=== PATIENT | female | born 1940 | race Caucasian/White ===

== ENCOUNTER 2023-12-13 15:15 | Emergency (ER) | payer MEDICARE, SELFPAY ==
--- NOTE | ~2023-12-13 | XR_ITS ---
EXAM: XR humerus RT, XR elbow RT 2V DATE: 12/13/2023 15:45 HISTORY: pain, MOVING HEAVY CHAIR 3 DAYS AGO HEARD POP . COMPARISON: None available. FINDINGS: Decreased mineralization. No fracture or dislocation. No lytic or blastic lesion. Mild deg enerative changes in the shoulder and elbow. Acromial and bilateral epicondylar enthesopathy. No eros ion or periosteal change. Soft tissues within normal limits. IMPRESSION: No acute osseous finding in the right humerus or right elbow. Reviewed, dictated and finalized at location K. R MACHINE OPERATOR IMPRESSION: No acute osseous finding in the right humerus or right elbow.
[2023-12-13 15:26] VITALS: BP 192/70; PULSE 87; RESP 18; TEMP 36.7; O2SAT 100
--- NOTE | 2023-12-13 17:49 | ED.GENADULT ---
HPI - General Adult General Chief complaint: Extremity Injury, Upper Stated complaint: right arm pain Source: patient Mode of arrival: ambulatory Limitations: no limitations History of Present Illness HPI narrative: this is a 83-year-old female who presents to the ED with chief complaint of right elbow and right upper arm pain following an injury that occurred yesterday. Reports that she was moving several heavy boxes around the house and while moving when she felt a pop. Reports the pain has been present in the upper arm primarily in the biceps area. Denies numbness, weakness, further sites of pain or injury. Related Data Allergies Allergy/AdvReac Type Severity Reaction Status Date / Time succinylcholine Allergy Unknown PARALETIC Verified 12/13/23 15:15 EFFECT Sulfa (Sulfonamide Allergy Unknown HIVES Verified 12/13/23 15:15 Antibiotics) Review of Systems Review of Systems: All systems as dictated in HPI Exam Narrative: GENERAL: Well-appearing, well-nourished, and in no acute distress. HEAD: Normocephalic, atraumatic. EYES: PERRLA and EOMI. ENT: Nares clear, no rhinorrhea or epistaxis. Mucous membranes moist. Oropharynx without tonsillar hypertrophy exudate or other lesions. NECK: Supple. No adenopathy or masses. CHEST: No respiratory distress. Clear to auscultation. No wheezes rales or rhonchi HEART: Regular rate and rhythm. No murmur heard. Normal peripheral pulses. ABDOMEN: Soft, nontender, nondistended, normal active bowel sounds. MSK: Full active range of motion throughout the bilateral upper extremities. there is mild bruise to the right lateral upper arm. Mild tenderness in this area. Neurovascularly intact distally. Good strength of the biceps and pastrycook's assistant strength. No deformity. SKIN: Warm, dry, no rash. NEURO: Alert and oriented x3. No focal deficits. PSYCH: Normal mood and affect. Course Vital Signs Vital signs: Vital Signs Temperature 98.1 F 12/13/23 15:26 Pulse Rate 87 12/13/23 15:26 Respiratory Rate 18 12/13/23 15:26 Blood Pressure 192/70 H 12/13/23 15:26 Pulse Oximetry 100 12/13/23 15:26 Oxygen Delivery Room Air 12/13/23 15:26 Temperature 98.1 F 12/13/23 15:26 Pulse Rate 87 12/13/23 15:26 Respiratory Rate 18 12/13/23 15:26 Blood Pressure 192/70 H 12/13/23 15:26 Pulse Oximetry 100 12/13/23 15:26 Oxygen Delivery Room Air 12/13/23 15:26 Medical Decision Making MDM Narrative Medical decision making narrative: This is an 83-year-old female who presents to the ED with chief complaint of right upper arm injury that occurred yesterday. Vitals are normal. Exam is relatively benign. There is some bruising but no deformity or difficulty with range of motion. X-rays of the right humerus and right elbow are negative for any acute osseous findings. Suspect that she has a tendon strain. No deformity to suggest full rupture of any tendon. Only has mild bruising present. She will be given sling for comfort. Pt will be discharged in stable condition. Return precautions given and supportive measures discussed. Pt is understanding and agreeable with plan for discharge and follow-up with PCP. Vital Signs Vital Signs: Vital Signs Temperature 98.1 F 12/13/23 15:26 Pulse Rate 87 12/13/23 15:26 Respiratory Rate 18 12/13/23 15:26 Blood Pressure 192/70 H 12/13/23 15:26 Pulse Oximetry 100 12/13/23 15:26 Oxygen Delivery Room Air 12/13/23 15:26 Temperature 98.1 F 12/13/23 15:26 Pulse Rate 87 12/13/23 15:26 Respiratory Rate 18 12/13/23 15:26 Blood Pressure 192/70 H 12/13/23 15:26 Pulse Oximetry 100 12/13/23 15:26 Oxygen Delivery Room Air 12/13/23 15:26 Discharge Plan Discharge Clinical Impression: Muscle strain of right upper arm Patient Disposition: Home, Self-Care Condition: Stable Instructions: Antibiotic Form, How to Use a Sling (ED) Additional Instructions: Your e
[2023-12-13 17:53] VITALS: BP 185/89; PULSE 75; RESP 18; O2SAT 99
== END 2023-12-13 17:54 | disposition home or self-care (01) ==
PROVIDERS: Emergency Provider Physician Assistant
DX: S46.911A Strain of unspecified muscle, fascia and tendon at shoulder and upper arm level, right arm, initial encounter (principal); X50.0XXA Overexertion from strenuous movement or load, initial encounter
CPT/HCPCS: 73060; 73070; 99284; A4565

== ENCOUNTER 2024-07-12 09:53 | Emergency (ER) | payer MEDICARE, SELFPAY ==
--- NOTE | ~2024-07-12 | US_ITS ---
EXAMINATION:US venous doppler LE LT INDICATION:Leg pain and swelling TECHNIQUE: Multiple grayscale, color flow and Doppler images of the left lower extremity deep venous systems were obtained and reviewed. COMPARISON:No prior studies for comparison. FINDINGS: The common femoral, superficial femoral and popliteal veins demonstrate normal respiratory variation, augmentation and compressibility. Color flow is also seen within the posterior tibial, pe roneal, greater saphenous and profunda veins. IMPRESSION: 1: No lower extremity deep venous thrombosis. Reviewed, dictated and finalized at location B.
[2024-07-12 09:56] VITALS: BP 141/61; PULSE 59; RESP 15; TEMP 36.4; O2SAT 99
[2024-07-12 11:52] VITALS: BP 163/60; PULSE 64; RESP 16; O2SAT 99
--- NOTE | 2024-07-12 13:27 | ED.EXTPRO ---
HPI - Extremity Problem General Chief complaint: Extremity Problem,Nontraumatic Stated complaint: Possible L leg DVT Time Seen by Provider: 07/12/24 11:56 Source: patient Mode of arrival: ambulatory Limitations: no limitations History of Present Illness HPI Narrative: 84-year-old with a history of hypertension, hypercholesteremia, PVD on Plavix here with the complaints of of pain in her left ankle on and off associated with mild swelling around the ankle. She thinks it could be a blockage. She denies any trauma. MD Complaint: extremity pain and extremity swelling Onset (ago): week(s) (1) Pain Consistency: constant Location: left Quality: aching Radiation: none Relieving factors: nothing Exacerbating factors: range of motion Associated symptoms: denies other symptoms Related Data Allergies Allergy/AdvReac Type Severity Reaction Status Date / Time succinylcholine Allergy Unknown doesnt Verified 07/12/24 11:40 wake up from it Sulfa (Sulfonamide Allergy Unknown HIVES Verified 07/12/24 11:40 Antibiotics) Review of Systems Review of Systems: All systems reviewed & are unremarkable except as noted in HPI and below Constitutional: Constitutional: Reports no additional constitutional complaints Eyes: Eyes: Reports no additional eye complaints ENT: Reports system reviewed and no additional complaints, except as documented Cardiovascular: Cardiovascular: Reports no additional cardiovascular complaints Respiratory: Respiratory: Reports no additional respiratory complaints Gastrointestinal: Gastrointestinal: Reports no additional gastrointestinal complaints Musculoskeletal: Musculoskeletal: Reports as per HPI Neurologic: Reports system reviewed and no additional complaints, except as documented Exam Narrative: GENERAL: Well-appearing, well-nourished, and in no acute distress. HEAD: Normocephalic, atraumatic. EYES: PERRLA and EOMI. ENT: Nares clear, no rhinorrhea or epistaxis. Mucous membranes moist. NECK: Supple. CHEST: Clear to auscultation. No respiratory distress. HEART: Regular rate and rhythm. No murmur heard. Normal peripheral pulses. EXTREMITIES: Normal range of motion. No edema. Examination of the left ankle no edema good capillary refill, palpable dorsalis pedis SKIN: Warm, dry, no rash. NEURO: No focal deficits. Alert and oriented x3. PSYCH: Normal mood and affect. Course Course Emergency Course: notified patient about her venous Doppler studies at this time is no evidence of DVT does not appear to be arterial occlusion she has good distal pulses. Advised to continue home medication, follow up with her primary doctor at [facility] Vital Signs Vital signs: Vital Signs Temperature 36.4 C 07/12/24 09:56 Pulse Rate 59 L 07/12/24 09:56 Respiratory Rate 15 07/12/24 09:56 Blood Pressure 141/61 H 07/12/24 09:56 Pulse Oximetry 99 07/12/24 09:56 Oxygen Delivery Room Air 07/12/24 09:56 Temperature 36.4 C 07/12/24 09:56 Pulse Rate 64 07/12/24 11:52 Respiratory Rate 16 07/12/24 11:52 Blood Pressure 163/60 H 07/12/24 11:52 Pulse Oximetry 99 07/12/24 11:52 Oxygen Delivery Room Air 07/12/24 09:56 MDM - Extremity (Nontraumatic) Imaging Data Radiologist's impression: ITS Impressions Venous Doppler Study 07/12/24 12:34 IMPRESSION: 1: No lower extremity deep venous thrombosis. Discharge Plan Discharge Clinical Impression: Left leg pain Patient Disposition: Home, Self-Care Condition: Stable Instructions: Leg Pain (ED) Additional Instructions: continue home medications you can follow-up with Dr. Soni the next few days if symptoms do not improve. Follow-up/Referrals: UNKNOWN,DOCTOR [Primary Care Provider] - Trey Alcocer MD [Physician] -
== END 2024-07-12 14:12 | disposition home or self-care (01) ==
PROVIDERS: Emergency Provider Family Medicine
DX: M79.605 Pain in left leg (principal); I10 Essential (primary) hypertension; E78.5 Hyperlipidemia, unspecified; Z79.01 Long term (current) use of anticoagulants
CPT/HCPCS: 93971; 99284